=== PATIENT | male | born 1940 | race Caucasian/White ===

== ENCOUNTER 2019-08-27 07:39 | Day surgery (SDC) | payer MEDICARE ==
[2019-08-27] VITALS (10 sets, daily range): BP systolic 113–169; BP diastolic 64–80
[~2019-08-27 07:39] MED LIST: ASPI81TA52 PO; FLO0.4C PO; GABA300T25 PO; OMEG1CAP2 PO; ROSU20TA2 PO
[2019-08-27] MEDS ORDERED: atropine 0.1mg/ml 10ml syringe IV ONE (08:15)
[2019-08-27] MEDS ORDERED: normal saline 1000ml 1,000 ML IV SCH (08:15)
[2019-08-27] MEDS ORDERED: LORazepam 0.5 MG tablet PO ONE (08:15)
[2019-08-27] MEDS ORDERED: morphine 10mg/ml inj. IV ONE (08:15)
[2019-08-27] MEDS ORDERED: MIDAZolam 5mg/ml 2ml vial IV ONE (08:15)
[2019-08-27] MEDS ORDERED: amiodarone in dextrose, iso-osm 150mg/100ml bag IV ONE (08:15)
[2019-08-27] MEDS ORDERED: diphenhydrAMINE 25mg capsule PO ONE (08:15)
[2019-08-27] MEDS ORDERED: DOCU-261 PO (08:39)
[2019-08-27] MEDS ORDERED: LOSA100T57 PO (08:39)
[2019-08-27] MEDS ORDERED: AMIO200T36 (08:39)
[2019-08-27] MEDS ORDERED: CARV6.253 PO (08:39)
[2019-08-27] MEDS ORDERED: APIX5TAB3 PO (08:39)
[2019-08-27] MEDS ORDERED: XAL0.005OS OP (08:39)
[2019-08-27 08:57] LABS: BASOPHILS % (AUTO) 0.6 % (0-1); EOSINOPHILS # (AUTO) 0.2 X10'3 (0-0.9); EOSINOPHILS % (AUTO) 3.7 % (0-6); HEMOGLOBIN 12.2 g/dl (14.0-17.9); LYMPHOCYTES # (AUTO) 1.2 X10'3 (1.1-4.8); LYMPHOCYTES % (AUTO) 21.5 % (21-51); MEAN CORPUSCULAR HEMOGLOBIN 34.5 PG (27.0-31.0); MEAN CORPUSCULAR HGB CONC 33.9 g/dL (33.0-36.5); MEAN CORPUSCULAR VOLUME 101.9 FL (78-98); MEAN PLATELET VOLUME 7.9 FL (7.4-10.4); MONOCYTES # (AUTO) 0.8 X10'3 (0-0.9); MONOCYTES % (AUTO) 15.1 % (2-12); NEUTROPHILS # (AUTO) 3.2 X10'3 (1.8-7.7); NEUTROPHILS % (AUTO) 59.1 % (42-75); PLATELET COUNT 141 X10'3 (140-440); RED BLOOD COUNT 3.54 X10'6 (4.70-6.10); RED CELL DISTRIBUTION WIDTH 15.2 % (11.5-14.5); WHITE BLOOD COUNT 5.4 X10'3 (4.5-11.0)
[2019-08-27 09:01] LABS: ALBUMIN 3.9 G/DL (3.4-5.0); ANION GAP 8 (8-16); BLOOD UREA NITROGEN 20 MG/DL (7-18); BUN/CREATININE RATIO 17.5 (5.4-32.0); CALCIUM 8.8 MG/DL (8.5-10.1); CHLORIDE 104 MMOL/L (99-107); CREATININE 1.14 MG/DL (0.60-1.10); GLUCOSE 94 MG/DL (70-104); POTASSIUM 4.3 MMOL/L (3.5-5.1); SODIUM 138 MMOL/L (135-145); TOTAL CARBON DIOXIDE 26.2 MMOL/L (24-32); eGFR 62 ML/MIN
== END 2019-08-27 11:35 | disposition home or self-care (01) ==
LOC: SSTAY O 07:39
PROVIDERS: ATTEND Internal Medicine Cardiovascular Disease
DX: I48.92 Unspecified atrial flutter (principal); I25.10 Atherosclerotic heart disease of native coronary artery without angina pectoris; I08.3 Combined rheumatic disorders of mitral, aortic and tricuspid valves; E78.5 Hyperlipidemia, unspecified; I48.91 Unspecified atrial fibrillation; I49.5 Sick sinus syndrome; J44.9 Chronic obstructive pulmonary disease, unspecified; K21.9 Gastro-esophageal reflux disease without esophagitis; N40.0 Benign prostatic hyperplasia without lower urinary tract symptoms; F41.9 Anxiety disorder, unspecified; F32.9 Major depressive disorder, single episode, unspecified; H40.9 Unspecified glaucoma; Z95.0 Presence of cardiac pacemaker; Z95.1 Presence of aortocoronary bypass graft; Z95.2 Presence of prosthetic heart valve; Z87.891 Personal history of nicotine dependence
CPT/HCPCS: 36415; 80048; 85025; 92960; 93005; 93306; J0282; J0461; J2250; J2270; J7030

== ENCOUNTER → 2021-06-10 | Outpatient (CLI) | payer MEDICARE ==
[~2021-06-10] VITALS: Ht 167.6 cm; Wt 68.1 kg
[~2021-06-10] MED LIST changes: +AMIO200T36; +APIX5TAB3 PO; +CARV6.253 PO; +DOCU-337 PO; -GABA300T25 PO; +LOSA100T57 PO; -OMEG1CAP2 PO; +XAL0.005OS OP; +aminophylline 250mg/10ml inj. IV PRN; +nitroGLYCERIN 0.4mg SUBLingual tab SL PRN; +normal saline 500ml IV soln 500 ML IV ONE; +regadenoson 0.4mg/5ml syringe IV ONE
[2021-06-10 09:50] VITALS: BP 144/61
[2021-06-10 09:55] VITALS: BP 139/61
[2021-06-10 09:56] VITALS: BP 142/52
[2021-06-10 09:57] VITALS: BP 140/62
[2021-06-10 09:58] VITALS: BP 139/57
[2021-06-10 09:59] VITALS: BP 134/54
== END | disposition home or self-care (01) ==
LOC: RAD 07:55
PROVIDERS: ATTEND Internal Medicine Cardiovascular Disease
DX: I25.10 Atherosclerotic heart disease of native coronary artery without angina pectoris (principal)
CPT/HCPCS: 78452; 93017; A9500; J2785; J7040

== ENCOUNTER 2022-03-29 09:19 | Day surgery (SDC) | payer MEDICARE ==
[2022-03-28 14:24] LABS: BASOPHILS % (AUTO) 0.4 % (0-1); EOSINOPHILS # (AUTO) 0.1 X10'3 (0-0.9); EOSINOPHILS % (AUTO) 1.5 % (0-6); HEMATOCRIT 34.6 % (42.0-52.0); HEMOGLOBIN 11.7 g/dl (14.0-17.9); LYMPHOCYTES % (AUTO) 17.7 % (21-51); MEAN CORPUSCULAR HEMOGLOBIN 34.6 PG (27.0-31.0); MEAN CORPUSCULAR HGB CONC 33.7 g/dL (33.0-36.5); MEAN CORPUSCULAR VOLUME 102.7 FL (78-98); MEAN PLATELET VOLUME 7.1 FL (7.4-10.4); MONOCYTES # (AUTO) 0.5 X10'3 (0-0.9); MONOCYTES % (AUTO) 9.1 % (2-12); NEUTROPHILS # (AUTO) 3.8 X10'3 (1.8-7.7); NEUTROPHILS % (AUTO) 71.3 % (42-75); PLATELET COUNT 191 X10'3 (140-440); RED BLOOD COUNT 3.37 X10'6 (4.70-6.10); RED CELL DISTRIBUTION WIDTH 14.1 % (11.5-14.5); WHITE BLOOD COUNT 5.4 X10'3 (4.5-11.0)
[2022-03-28 14:33] LABS: APTT 29 SECONDS (22-32)
[2022-03-28 14:35] LABS: ALBUMIN 3.8 G/DL (3.4-5.0); ANION GAP 9 (8-16); BLOOD UREA NITROGEN 14 MG/DL (7-18); BUN/CREATININE RATIO 16.9 (5.4-32.0); CALCIUM 8.5 MG/DL (8.5-10.1); CHLORIDE 101 MMOL/L (99-107); CREATININE 0.83 MG/DL (0.60-1.10); GLUCOSE 142 MG/DL (70-104); SODIUM 133 MMOL/L (135-145); TOTAL CARBON DIOXIDE 23.5 MMOL/L (24-32); eGFR 89 ML/MIN
[2022-03-29] VITALS (17 sets, daily range): BP systolic 127–181; BP diastolic 53–88
[~2022-03-29] VITALS: Ht 167.6 cm; Wt 67.2 kg
[~2022-03-29 09:19] MED LIST changes: -aminophylline 250mg/10ml inj. IV PRN; -nitroGLYCERIN 0.4mg SUBLingual tab SL PRN; -normal saline 500ml IV soln 500 ML IV ONE; -regadenoson 0.4mg/5ml syringe IV ONE
[2022-03-29] MEDS ORDERED: fentaNYL/PF 50MCG/1 ML 2ML syringe ONE (09:36)
[2022-03-29] MEDS ORDERED: LIDOcaine 1% 30ml preserv. free vial ONE (09:36)
[2022-03-29] MEDS ORDERED: midazolam 1 mg/ML 2ml injection ONE (09:36)
[2022-03-29] MEDS ORDERED: LATA5DRO (09:37)
[2022-03-29] MEDS ORDERED: mometasone (09:37)
[2022-03-29] MEDS ORDERED: METH1TAB47 PO (09:37)
[2022-03-29] MEDS ORDERED: OMEP20CA16 PO (09:37)
[2022-03-29] MEDS ORDERED: VITA1TAB97 PO (09:37)
[2022-03-29] MEDS ORDERED: APIX2.5T PO (09:37)
[2022-03-29] MEDS ORDERED: heparin 1,000unit/ml 10ml vial 10 ML ONE (10:00)
[2022-03-29] MEDS ORDERED: normal saline 1,000 ML IV SCH (10:05)
[2022-03-29] MEDS ORDERED: nitroGLYCERIN-Tridil 50MG/D5W 250 ML IV ONE (10:10)
[2022-03-29] MEDS ORDERED: verapamil 2.5 mg/ml inj IV ONE (10:10)
[2022-03-29] MEDS ORDERED: iohexol 350 MG/ML 50ML vial IV ONE (10:51)
[2022-03-29] MEDS ORDERED: iohexol 350 MG/1 ML 200ml bottle ONE (11:05)
[2022-03-29 11:35] LABS: ISTAT HGB ART 11.6 g/dl (14.0-18.0); ISTAT Hct ART 34 %PCV (42-52); ISTAT O2 SATURATION ARTERIAL 99 % (95-98); ISTAT SOURCE ART
[2022-03-29] MEDS ORDERED: hydrALAZINE 20mg/ml inj. IV ONE (11:45)
[2022-03-29] MEDS ORDERED: normal saline 1000ml 1,000 ML IV SCH (12:45)
[2022-03-29] MEDS: hydrALAZINE 20mg/ml inj. IV PRN ×2 (14:57→19:07)
[2022-03-29] MEDS: morphine 2 MG/ML inj. syringe IV PRN (15:22)
[2022-03-29] MEDS ORDERED: mag hydrox/Alum hydrox/simeth 30ml oral suspension PO ONE (15:45)
[2022-03-29] MEDS ORDERED: ondansetron/PF 4mg/2ml inj ONE (16:32)
[2022-03-29] MEDS ORDERED: normal saline 1000ml 1,000 ML IV ONE (18:45)
--- NOTE | 2022-03-29 19:30 | NUR ---
Report given to MICKEY Burnette, VSS, no changes in pt's R groin incision sites, pt transferred to [id number], all pt belongings transferred with pt, call light within pt's reach, pt is in stable condition at this time.
[2022-03-29] MEDS ORDERED: HYDROcodone/acetaminophen 10/325mg tab PO PRN (20:10)
[2022-03-29] MEDS ORDERED: HYDROcodone/acetaminophen 5mg/325mg tablet PO PRN (20:10)
[2022-03-29] MEDS: carvedilol 6.25mg tablet PO SCH (20:33)
--- NOTE | 2022-03-29 22:00 | NUR ---
Pt admitted to the unit and brought in by transport staff. All personal belongings accounted for. Two RN skin assessment completed. Drsg intact to R/femoral artery access site. Pt oriented to room and call light within reach. 2230: Pt had large emesis. Pt stated he does not need medicine for it. Will continue to monitor. 0555: . Pt stated he slept well and feel better this morning. No emesis noted again after the last episode.
[2022-03-29] MEDS ORDERED: Melatonin 3mg tablet PO SCH ×2 (23:47→23:50)
[2022-03-30] VITALS: BP 144/78
[2022-03-30 03:38] VITALS: BP 154/69
[2022-03-30] MEDS: morphine 2 MG/ML inj. syringe IV PRN (03:51)
[2022-03-30] MEDS ORDERED: normal saline 1000ml 1,000 ML IV SCH (04:44)
--- NOTE | 2022-03-30 06:40 | NUR ---
Problems reprioritized. Patient report given, MICKEY Kaur, questions answered & plan of care reviewed with .
[2022-03-30 07:26] LABS: BASOPHILS % (AUTO) 0.5 % (0-1); EOSINOPHILS # (AUTO) 0.1 X10'3 (0-0.9); EOSINOPHILS % (AUTO) 0.9 % (0-6); HEMATOCRIT 32.1 % (42.0-52.0); LYMPHOCYTES # (AUTO) 0.8 X10'3 (1.1-4.8); LYMPHOCYTES % (AUTO) 14.1 % (21-51); MEAN CORPUSCULAR HEMOGLOBIN 35.4 PG (27.0-31.0); MEAN CORPUSCULAR HGB CONC 34.2 g/dL (33.0-36.5); MEAN CORPUSCULAR VOLUME 103.5 FL (78-98); MEAN PLATELET VOLUME 6.9 FL (7.4-10.4); MONOCYTES # (AUTO) 0.8 X10'3 (0-0.9); MONOCYTES % (AUTO) 12.5 % (2-12); NEUTROPHILS # (AUTO) 4.3 X10'3 (1.8-7.7); PLATELET COUNT 156 X10'3 (140-440); RED BLOOD COUNT 3.11 X10'6 (4.70-6.10); RED CELL DISTRIBUTION WIDTH 14.3 % (11.5-14.5)
[2022-03-30] MEDS ORDERED: pantoprazole 40mg Tablet.DR PO SCH (07:30)
[2022-03-30 07:47] LABS: ALANINE AMINOTRANSFERASE 20 U/L (12-78); ALBUMIN/GLOBULIN RATIO 1.1 (1.1-1.5); ALKALINE PHOSPHATASE 37 IU/L (46-116); ANION GAP 8 (8-16); ASPARTATE AMINO TRANSFERASE 15 U/L (10-37); BILIRUBIN,TOTAL 0.8 MG/DL (0.1-1.0); BLOOD UREA NITROGEN 11 MG/DL (7-18); BUN/CREATININE RATIO 16.9 (5.4-32.0); CALCIUM 8.1 MG/DL (8.5-10.1); CHLORIDE 101 MMOL/L (99-107); CREATININE 0.65 MG/DL (0.60-1.10); GLUCOSE 95 MG/DL (70-104); MAGNESIUM 1.9 MG/DL (1.5-2.4); POTASSIUM 4.4 MMOL/L (3.5-5.1); SODIUM 132 MMOL/L (135-145); TOTAL CARBON DIOXIDE 22.7 MMOL/L (24-32); TOTAL PROTEIN 5.7 G/DL (6.4-8.2); eGFR > 90 ML/MIN
[2022-03-30] MEDS ORDERED: losartan 50mg tablet PO SCH (08:00)
[2022-03-30] MEDS ORDERED: apixaban 2.5mg tablet PO SCH (08:00)
[2022-03-30] MEDS ORDERED: atorvastatin 20mg tablet PO SCH (08:00)
[2022-03-30] MEDS ORDERED: MEFOLATE PO SCH (08:00)
[2022-03-30] MEDS ORDERED: METHYL B12 PO SCH (08:00)
[2022-03-30] MEDS ORDERED: cholecalciferol (vitamin D3) 1,000 unit (25mcg) tablet PO SCH (08:00)
[2022-03-30] MEDS ORDERED: tamsulosin 0.4mg capsule PO SCH (08:00)
[2022-03-30] MEDS ORDERED: aspirin 81mg, enteric-coated 1 TAB TABLET.DR PO SCH (08:00)
[2022-03-30] MEDS ORDERED: B6 PHOS PO SCH (08:00)
[2022-03-30] MEDS ORDERED: non-formulary drug (Omeprazole 1 CAP) PO SCH (08:00)
[2022-03-30 09:22] VITALS: BP_SYST 167
[2022-03-30] MEDS: carvedilol 6.25mg tablet PO SCH (09:22)
[2022-03-30] MEDS ORDERED: ROSU40TA PO (15:12)
[2022-03-30] MEDS ORDERED: Melatonin 3mg tablet PO SCH (21:00)
[2022-04-03 06:18] LABS: ISTAT Hct MIX 34 %PCV (42-52); ISTAT O2 SATURATION MIX VENOUS 75 % (60-80); ISTAT SOURCE VEN
== END 2022-03-30 10:59 | disposition home or self-care (01) ==
LOC: SSTAY O 09:19 → PCU 3S 19:50 → SSTAY O 03-30 10:59
PROVIDERS: ATTEND Internal Medicine Cardiovascular Disease
DX: R53.83 Other fatigue (principal); R06.02 Shortness of breath; I25.810 Atherosclerosis of coronary artery bypass graft(s) without angina pectoris; I10 Essential (primary) hypertension; J44.9 Chronic obstructive pulmonary disease, unspecified; E78.5 Hyperlipidemia, unspecified; N40.0 Benign prostatic hyperplasia without lower urinary tract symptoms; H40.9 Unspecified glaucoma; F41.9 Anxiety disorder, unspecified; I48.0 Paroxysmal atrial fibrillation; F32.A Depression, unspecified; I65.21 Occlusion and stenosis of right carotid artery; I08.3 Combined rheumatic disorders of mitral, aortic and tricuspid valves; Z95.2 Presence of prosthetic heart valve; Z79.01 Long term (current) use of anticoagulants; Z79.899 Other long term (current) drug therapy; Z87.891 Personal history of nicotine dependence
CPT/HCPCS: 36415; 76700; 76937; 80048; 80053; 82803; 83735; 85014; 85025; 85610; 85730; 87081; 93005; 93461; 93567; 99152; 99153; C1760; C1769; C1894; J0360; J1644; J2250; J2270; J2405; J3010; J3490; J7030; Q9967; A4620; A6258; G0378

== ENCOUNTER 2022-07-10 09:08 | Day surgery (SDC) | payer MEDICARE ==
[~2022-07-10] VITALS: Ht 167.6 cm; Wt 60.8 kg
[2022-07-10] VITALS (12 sets, daily range): BP systolic 144–172; BP diastolic 68–84
[~2022-07-10 09:08] MED LIST changes: -AMIO200T36; +AMIO200T61 PO; -DOCU-337 PO; +FURO20TA4 PO; +LATA5DRO EACHEYE; +LEVO-65 PO; +METH1TAB47 PO; +OMEP20CA16 PO; -ROSU20TA2 PO; +ROSU40TA PO; -XAL0.005OS OP
[2022-07-10] MEDS ORDERED: normal saline 1,000 ML IV SCH (09:35)
[2022-07-10] MEDS ORDERED: diphenhydrAMINE 25mg capsule PO PRN (09:35)
[2022-07-10] MEDS ORDERED: LORazepam 0.5 MG tablet PO PRN (09:35)
[2022-07-10 10:14] LABS: ALBUMIN 3.4 G/DL (3.4-5.0); ANION GAP 8 (8-16); BLOOD UREA NITROGEN 12 MG/DL (7-18); BUN/CREATININE RATIO 15.2 (5.4-32.0); CHLORIDE 102 MMOL/L (99-107); CREATININE 0.79 MG/DL (0.60-1.10); GLUCOSE 88 MG/DL (70-104); POTASSIUM 4.2 MMOL/L (3.5-5.1); SODIUM 137 MMOL/L (135-145); TOTAL CARBON DIOXIDE 26.8 MMOL/L (24-32); eGFR > 90 ML/MIN
[2022-07-10 10:18] LABS: APTT 29 SECONDS (22-32); BASOPHILS % (AUTO) 1.1 % (0-1); EOSINOPHILS # (AUTO) 0.1 X10'3 (0-0.9); EOSINOPHILS % (AUTO) 2.6 % (0-6); HEMATOCRIT 31.7 % (42.0-52.0); HEMOGLOBIN 10.9 g/dl (14.0-17.9); LYMPHOCYTES # (AUTO) 0.8 X10'3 (1.1-4.8); LYMPHOCYTES % (AUTO) 18.1 % (21-51); MEAN CORPUSCULAR HEMOGLOBIN 34.8 PG (27.0-31.0); MEAN CORPUSCULAR HGB CONC 34.3 g/dL (33.0-36.5); MEAN CORPUSCULAR VOLUME 101.4 FL (78-98); MEAN PLATELET VOLUME 7.1 FL (7.4-10.4); MONOCYTES # (AUTO) 0.5 X10'3 (0-0.9); NEUTROPHILS # (AUTO) 2.9 X10'3 (1.8-7.7); NEUTROPHILS % (AUTO) 66.2 % (42-75); PLATELET COUNT 256 X10'3 (140-440); RED BLOOD COUNT 3.13 X10'6 (4.70-6.10); RED CELL DISTRIBUTION WIDTH 15.4 % (11.5-14.5); WHITE BLOOD COUNT 4.4 X10'3 (4.5-11.0)
[2022-07-10] MEDS ORDERED: nitroGLYCERIN-Tridil 50MG/D5W 250 ML IV ONE (12:42)
[2022-07-10] MEDS ORDERED: fentaNYL/PF 50MCG/1 ML 2ML syringe ONE (12:43)
[2022-07-10] MEDS ORDERED: midazolam 1 mg/ML 2ml injection ONE (12:43)
[2022-07-10] MEDS ORDERED: iohexol 350MG/ML 100ml bottle IV ONE (12:43)
[2022-07-10] MEDS ORDERED: heparin 1,000unit/ml 10ml vial 10 ML ONE (12:43)
[2022-07-10] MEDS ORDERED: LIDOcaine 1% 30ml preserv. free vial ONE (12:44)
[2022-07-10] MEDS ORDERED: HEPARIN SOD,PORK IN 0.45% NACL 250 ML IV ONE (13:28)
[2022-07-10] MEDS ORDERED: clopidogrel 300mg tablet ONE (14:11)
[2022-07-10] MEDS ORDERED: aspirin 81mg tab.chew ONE (14:11)
--- NOTE | 2022-07-10 15:00 | NUR ---
Dressing applied to RLE ( skin tear).
--- NOTE | 2022-07-10 15:52 | NUR ---
Report to MICKEY Alston. (R) groin site remains stable. Plavix called into [facility] to brick picker.
--- NOTE | 2022-07-10 16:00 | NUR ---
Received report, VSS, denies pain, right groin site stable, no bleeding, bruising or hematoma noted, pressure dressing in place from grass [employer] lab[employer] CD&IDestiny Blanton at bedside.
[2022-07-10] MEDS ORDERED: HYDROcodone/acetaminophen 10/325mg tab PO PRN (16:35)
[2022-07-10] MEDS ORDERED: HYDROcodone/acetaminophen 5mg/325mg tablet PO PRN (16:35)
--- NOTE | 2022-07-10 18:15 | NUR ---
Harvinder back from pharmacy, picked up prescriptions for plavix and aspirin.
--- NOTE | 2022-07-10 20:00 | NUR ---
Written and verbal DC instructions given to pt and caregiver, verbalizes understanding. VSS, denies pain. Pt amb in hallway with walker, gait steady. Right groin site stable. Dressing intact. PIV DC cath intact. Caregiver Harvinder assisted pt to get dressed. DC to home with Harvinder with all belongings, transferred to private car via WC. Pt able to transfer self to car.
[2022-07-11] MEDS ORDERED: clopidogrel 75mg tablet PO SCH (08:00)
== END 2022-07-10 20:00 | disposition home or self-care (01) ==
LOC: SSTAY O 09:08
PROVIDERS: ATTEND Internal Medicine Cardiovascular Disease
DX: I25.10 Atherosclerotic heart disease of native coronary artery without angina pectoris (principal); Z79.01 Long term (current) use of anticoagulants; E78.5 Hyperlipidemia, unspecified; J44.9 Chronic obstructive pulmonary disease, unspecified; K21.9 Gastro-esophageal reflux disease without esophagitis; I11.0 Hypertensive heart disease with heart failure; I50.9 Heart failure, unspecified; F41.8 Other specified anxiety disorders; Z79.899 Other long term (current) drug therapy; Z98.890 Other specified postprocedural states; I48.0 Paroxysmal atrial fibrillation; Z95.5 Presence of coronary angioplasty implant and graft
CPT/HCPCS: 36415; 80048; 85025; 85347; 85610; 85730; 93005; 99152; 99153; C1725; C1751; C1760; C1769; C1874; C1894; C9600; J1644; J2250; J3490; J7030; Q0163; Q9967; A4620; A6258; J3010